=== PATIENT | female | born 1955 | race Caucasian/White ===

== ENCOUNTER → 2020-05-12 | Outpatient (CLI) | payer MEDICARE ==
--- NOTE | 2020-05-12 14:52 | RAD ---
EXAM: PET W CT WHOLE BODY EXAM DATE: 05/12/2020 INDICATION: Lytic lesion in the spine. Question multiple myeloma. Patient is a diabetic who last took her dose of metformin the night before. She also uses insulin. RADIOPHARMACEUTICAL: 12.8 mCi of F-18 Fluorodeoxyglucose (FDG) I.V. via the right antecubital fossa. TECHNIQUE: Patient weight: 170 pounds. Following at least four-hour fasting, the patient's blood glucose was 187 mg/dl. Approximately 1 hour after administration of FDG, overlapping emission scanning was performed from the top of the head through the feet. A low-dose CT was performed for attenuation correction purposes and anatomic localization. Fused images of PET and CT were reviewed. Any standardized uptake values (SUV) reported are maximum values within a volume region of interest, expressed in gm/ml. COMPARISON: No relevant comparisons currently available FINDINGS: PET: Mediastinal background activity measures a max SUV of 2.21. Hepatic background activity measures 2.39. Expected marrow activity is present with no discrete hypermetabolic lesions in the spine. Physiologic gastrointestinal tract activity is present but there is mild focal activity in the rectum of uncertain significance to max SUV of 3.63. Activity in the legs is concentrated in the anterior compartment of the legs along the extensor muscle group. No abnormal marrow uptake in the legs. CT: CT of the head and neck shows degenerative changes at the atlantodental dens articulation with additional degenerative changes of the left C2-C3 uncovertebral joint. There is generalized demineralization. No pathologic fracture or aggressive appearing osseous lesion appreciated. The lungs show no suspicious nodules are well aerated with no focal infiltrates. No pneumothorax or pleural effusion. No mediastinal mass or adenopathy. Soft tissues of the abdomen and pelvis are unremarkable without IV contrast. IMPRESSION: No abnormal uptake in the bones to suggest a metabolically active marrow replacing process. High background activity could obscure subtle foci of pathologic uptake. Should the patient receive a follow-up examination, tighter blood glucose control could be of benefit. Electronically signed by: Esau Bedoya MD (05/12/2020 2:48 PM) [id number]
== END | disposition home or self-care (01) ==
LOC: PETSC 08:31
PROVIDERS: ATTEND Family Medicine
DX: M47.812 Spondylosis without myelopathy or radiculopathy, cervical region (principal); R93.7 Abnormal findings on diagnostic imaging of other parts of musculoskeletal system; E11.9 Type 2 diabetes mellitus without complications; Z79.84 Long term (current) use of oral hypoglycemic drugs; Z79.4 Long term (current) use of insulin
CPT/HCPCS: 78816; A9552